=== PATIENT | male | born 1990 | race Caucasian/White ===

== ENCOUNTER 2018-12-26 20:23 | Emergency (ER) | payer SELFPAY ==
[~2018-12-26] VITALS: Ht 177.8 cm; Wt 72.6 kg
[2018-12-26] MEDS ORDERED: NS IV 1000 ML 1,000 ML IV ONE (20:48)
[2018-12-26 21:06] LABS: BASOPHILS % (AUTO) 0 % (0-10); EOSINOPHILS % (AUTO) 0 % (0-10); HEMATOCRIT 44 % (40-54); HEMOGLOBIN 14.8 G/DL (13.3-17.7); LYMPHOCYTES # (AUTO) 1.2 X 10^3 (1.0-4.0); LYMPHOCYTES % (AUTO) 10 % (12-44); MEAN CORPUSCULAR HEMOGLOBIN 29 PG (25-34); MEAN CORPUSCULAR HGB CONC 34 G/DL (32-36); MEAN CORPUSCULAR VOLUME 86 FL (80-99); MEAN PLATELET VOLUME 10.1 FL (7.4-10.4); MONOCYTES # (AUTO) 0.8 X 10^3 (0.0-1.0); MONOCYTES % (AUTO) 7 % (0-12); NEUTROPHILS % (AUTO) 83 % (42-75); PLATELET COUNT 342 10^3/uL (130-400); RED CELL DISTRIBUTION WIDTH 12.7 % (10.0-14.5)
[2018-12-26 21:11] LABS: INR 1.1 (0.8-1.4); PROTHROMBIN TIME PATIENT 14.1 SEC (12.2-14.7)
--- NOTE | 2018-12-26 21:13 | Diagnostic Imaging Report ---
Patient History: Fall, dizziness, lightheadedness, diaphoresis, vomiting, nausea, cough. Technique: Single frontal view of the chest Comparison: None FINDINGS: The lung volumes are normal. No focal consolidation is seen. No large pleural effusion or pneumothorax is seen. The cardiomediastinal silhouette is normal in size and contour. No acute osseous abnormality is seen. IMPRESSION: No acute pulmonary abnormality seen. Dictated by: Dictated on workstation # [id number]
[2018-12-26 21:20] LABS: ALANINE AMINOTRANSFERASE 16 U/L (0-55); ALBUMIN 4.6 GM/DL (3.2-4.5); ALKALINE PHOSPHATASE 59 U/L (40-136); BILIRUBIN,TOTAL 0.5 MG/DL (0.1-1.0); BUN/CREATININE RATIO 13; CALCIUM 9.9 MG/DL (8.5-10.1); CARBON DIOXIDE 22 MMOL/L (21-32); CHLORIDE 104 MMOL/L (98-107); CREATININE SERUM 1.02 MG/DL (0.60-1.30); GFR ESTIMATED > 60; GLUCOSE 119 MG/DL (70-105); POTASSIUM 3.4 MMOL/L (3.6-5.0); SODIUM 138 MMOL/L (135-145); TOTAL PROTEIN 8.1 GM/DL (6.4-8.2)
[2018-12-26] MEDS ORDERED: KETOROLAC 30 MG/ML VIAL IVP ONE (21:45)
[2018-12-26] MEDS ORDERED: ONDANSETRON 4 MG/2 ML (SDV) Z0FRAN IVP ONE (21:45)
[2018-12-26] MEDS ORDERED: ACETAMINOPHEN 500 MG TAB (TYLENOL) PO ONE (21:45)
--- NOTE | 2018-12-26 21:47 | ED General ---
General Chief Complaint: Dizziness/Syncope Stated Complaint: DIZZY,LIGHTHEADED Nursing Triage Note: PT STATES LAST TUESDAY HE FELL OFF HIS TRAILER AND HIT HIS HEAD. UNKNOWN IF HE HIT HIS HEAD. PT STATES TODAY HE HAS HAD 4 EPISODES OF VOMITING AND FEELS SWEATY. PT DENIES DIARRHEA. PT DENIES SYNCOPE EPISODE TODAY. Nursing Sepsis Screen: Possible Sepsis Risk Source of Information: Patient Exam Limitations: No Limitations History of Present Illness Date Seen by Provider: Dec 26, 2018 Time Seen by Provider: 20:48 Initial Comments This 28-year-old young man presents to the emergency room with complaints of vomiting, lightheadedness, dizziness, sweats, chills, slight dry cough, and lower extremity myalgias that started earlier today. He had a fall on of last week for which she was seen and evaluated at a facility in [place]. He had been feeling relatively well after that other than needing to take naproxen for pains related to the fall. He is noted to be febrile and tachycardic on arrival. Septic workup was pursued. Allergies and Home Medications Allergies Coded Allergies: No Known Drug Allergies (Unverified , 12/26/18) Patient Home Medication List Home Medication List Reviewed: Yes Review of Systems Review of Systems Constitutional: see HPI EENTM: no symptoms reported Respiratory: see HPI Cardiovascular: see HPI Gastrointestinal: see HPI Genitourinary: no symptoms reported Musculoskeletal: see HPI Skin: no symptoms reported Psychiatric/Neurological: See HPI Hematologic/Lymphatic: No Symptoms Reported Past Cqzejyn-[id number] Hx Past Med/Social Hx: Reviewed Nursing Past Med/Soc Hx Patient Social History Alcohol Use: Rarely Uses Recreational Drug Use: No Recent Foreign Travel: No Contact w/Someone Who Travel: No Recent Infectious Disease Expo: No Recent Hopitalizations: No Physical Abuse: No Sexual Abuse: No Mistreated: No Fear: No Seasonal Allergies Seasonal Allergies: No Past Medical History Surgeries: No Respiratory: No Cardiac: No Neurological: No Genitourinary: No Gastrointestinal: No Musculoskeletal: No Endocrine: No HEENT: No Cancer: No Psychosocial: No Integumentary: No Physical Exam Vital Signs Vital Signs - First Documented 12/26/18 12/26/18 20:40 20:58 Temp 101.6 Pulse 126 Resp 20 B/P (MAP) 109/79 (89) Pulse Ox 99 O2 Delivery Room Air Capillary Refill : Less Than 3 Seconds Height, Weight, BMI Height: 5'10.00" Weight: 160lbs. oz. 72.075137jq; BMI Method:Stated General Appearance: No Apparent Distress, WD/WN HEENT: PERRL/EOMI, TMs Normal, Normal ENT Inspection, Pharynx Normal Neck: Normal Inspection Respiratory: Lungs Clear, Normal Breath Sounds, No Accessory Muscle Use, No Respiratory Distress Cardiovascular: No Edema, No Murmur, Tachycardia Gastrointestinal: Normal Bowel Sounds, Non Tender, Soft Extremity: Normal Inspection, No Pedal Edema Neurologic/Psychiatric: Alert, Oriented x3, No Motor/Sensory Deficits, Normal Mood/Affect, workgroup leader II-XII Norm as Tested Skin: Normal Color, Warm/Dry Focused Exam Lactate Level 12/26/18 20:57: Lactic Acid Level 0.78 Lactic Acid Level Progress/Results/Core Measures Suspected Sepsis Recent Fever Within 48 Hours: Yes Infection Criteria Present: Suspected New Infection New/Unexplained Altered Menta: No Sepsis Screen: Possible Sepsis Risk SIRS Temperature:101.6 Pulse: 126 Respiratory Rate: 20 Laboratory Tests 12/26/18 20:57: White Blood Count 12.0H Blood Pressure 109 /79 Mean: 89 12/26/18 20:57: Lactic Acid Level 0.78 Laboratory Tests 12/26/18 20:57: Creatinine 1.02, INR Comment 1.1, Platelet Count 342, Total Bilirubin 0.5 Results/Orders Lab Results Laboratory Tests Test 12/26/18 20:57 12/26/18 22:26 Range/Units White Blood Count 12.0 H 4.3-11.0 10^3/uL Red Blood Count 5.09 4.35-5.85 10^6/uL Hemoglobin 14.8 13.3-17.7 G/DL Hematocrit 44 40-54 % Mean Corpuscular Volume 86 80-99 FL Mean Corpuscular Hemoglobin 29 25-34 PG Mean Corpuscular Hemoglobin Concent 34 32-36 G/DL Red Cell Distribution Width 12.7 10.0-14.5 % Platelet Count 342 130-400 10^3/uL Mean Platelet Volume 10.1 7.4-10.4 FL Neutrophils (%) (Auto) 83 H 42-75 % Lymphocytes (%) (Auto) 10 L 12-44 % Monocytes (%) (Auto) 7 0-12 % Eosinophils (%) (Auto) 0 0-10 % Basophils (%) (Auto) 0 0-10 % Neutrophils # (Auto) 10.0 H 1.8-7.8 X 10^3 Lymphocytes # (Auto) 1.2 1.0-4.0 X 10^3 Monocytes # (Auto) 0.8 0.0-1.0 X 10^3 Eosinophils # (Auto) 0.0 0.0-0.3 10^3/uL Basophils # (Auto) 0.0 0.0-0.1 10^3/uL Prothrombin Time 14.1 12.2-14.7 SEC INR Comment 1.1 0.8-1.4 Activated Partial Thromboplast Time 32 24-35 SEC Sodium Level 138 135-145 MMOL/L Potassium Level 3.4 L 3.6-5.0 MMOL/L Chloride Level 104 98-107 MMOL/L Carbon Dioxide Level 22 21-32 MMOL/L Anion Gap 12 5-14 MMOL/L Blood Urea Nitrogen 13 7-18 MG/DL Creatinine 1.02 0.60-1.30 MG/DL Estimat Glomerular Filtration Rate > 60 BUN/Creatinine Ratio 13 Glucose Level 119 H 70-105 MG/DL Lactic Acid Level 0.78 0.50-2.00 MMOL/L Calcium Level 9.9 8.5-10.1 MG/DL Corrected Calcium 8.5-10.1 MG/DL Total Bilirubin 0.5 0.1-1.0 MG/DL Aspartate Amino Transf (AST/SGOT) 14 5-34 U/L Alanine Aminotransferase (ALT/SGPT) 16 0-55 U/L Alkaline Phosphatase 59 40-136 U/L Total Creatine Kinase 132 30-200 U/L C-Reactive Protein High Sensitivity 2.90 H 0.00-0.50 MG/DL Total Protein 8.1 6.4-8.2 GM/DL Albumin 4.6 H 3.2-4.5 GM/DL Urine Color YELLOW Urine Clarity SLIGHTLY CLOUDY Urine pH 6.5 5-9 Urine Specific Byron 1.010 L 1.016-1.022 Urine Protein NEGATIVE NEGATIVE Urine Glucose (UA) NEGATIVE NEGATIVE Urine Ketones NEGATIVE NEGATIVE Urine Nitrite NEGATIVE NEGATIVE Urine Bilirubin NEGATIVE NEGATIVE Urine Urobilinogen 1 NORMAL MG/DL Urine Leukocyte Esterase 1+ H NEGATIVE Urine RBC (Auto) 1+ H NEGATIVE Urine RBC RARE /HPF Urine WBC RARE /HPF Urine Squamous Epithelial Cells RARE /HPF Urine Crystals NONE /LPF Urine Bacteria NEGATIVE /HPF Urine Casts NONE /LPF Urine Mucus SMALL H /LPF Urine Culture Indicated NO My Orders Orders - BENTLEY DERAS MD Cbc With Automated Diff (12/26/18 20:48) Comprehensive Metabolic Panel (12/26/18 20:48) Blood Culture (12/26/18 20:48) Urinalysis (12/26/18 20:48) Urine Culture (12/26/18 20:48) Protime With Inr (12/26/18 20:48) Partial Thromboplastin Time (12/26/18 20:48) Chest 1 View, Ap/Pa Only (12/26/18 20:48) Ed Iv/Invasive Line Start (12/26/18 20:48) Ed Iv/Invasive Line Start (12/26/18 20:48) Vital Signs Adult Sepsis Patie Q15M (12/26/18 20:48) O2 (12/26/18 20:48) Remove Rings In Anticipation O (12/26/18 20:48) Lactic Acid Analyzer (12/26/18 20:48) Ns Iv 1000 Ml (Sodium Chloride 0.9%) (12/26/18 20:48) Acetaminophen Tablet (Tylenol Tablet) (12/26/18 21:45) Ketorolac Injection (Toradol Injection) (12/26/18 21:45) Ondansetron Injection (Zofran Injectio (12/26/18 21:45) Creatine Kinase (12/26/18 21:33) Hs C Reactive Protein (12/26/18 21:33) Lactated Ringers (Lr 1000 Ml Iv Solution (12/26/18 22:09) Rx-Ondansetron Po (Rx-Zofran Po) (12/26/18 22:54) Medications Given in ED Vital Signs/I&O 12/27/18 00:00 Intake Total 2000 ml Balance 2000 ml Capillary Refill : Less Than 3 Seconds Blood Pressure Mean: 89 Progress Note #1: Time: 22:20 Progress Note Patient was seen and evaluated. Septic workup was pursued. Workup was relatively unremarkable thus far. We are still awaiting a UA. He is being treated for fever with Tylenol and pain with Toradol. A liter of normal saline was infused. He was still not able to urinate and a liter of LR has been ordered. Zofran was given for nausea. Progress Note #2: Progress Note Patient was feeling much improved after IV fluids and medications. Workup revealed no source of bacterial infection. Syndrome was felt to be caused by viral illness. See discharge instructions. Diagnostic Imaging Diagonstic Imaging: Xray Plain Films/CT/US/NM/MRI: chest Comments Chest x-ray viewed by me and report reviewed. See report below: NAME: JOSH LUQUE [facility] REC#: [id number] PT STATUS: REG ER : 1990 PHYSICIAN: BENTLEY DERAS MD ADMIT DATE: 12/26/18/ER Draft Date of Exam:12/26/18 CHEST 1 VIEW, AP/PA ONLY Patient History: Fall, dizziness, lightheadedness, diaphoresis, vomiting, nausea, cough. Technique: Single frontal view of the chest Comparison: None FINDINGS: The lung volumes are normal. No focal consolidation is seen. No large pleural effusion or pneumothorax is seen. The cardiomediastinal silhouette is normal in size and contour. No acute osseous abnormality is seen. IMPRESSION: No acute pulmonary abnormality seen. Dictated on workstation # [id number] Dict: 12/26/182106 Trans: 12/26/182111 [facility] [id number] Interpreted by: JOMAR HORN MD Departure Impression Primary Impression: Febrile illness Additional Impressions: Nausea & vomiting Qualified Codes: R11.2 - Nausea with vomiting, unspecified Lightheadedness Disposition: 01 HOME, SELF-CARE Condition: Improved Departure-Patient Inst. Decision time for Depature: 22:56 Referrals: NO,LOCAL PHYSICIAN (PCP/Family) Primary Care Physician Patient Instructions: Nausea and Vomiting, Adult (DC) Add. Discharge Instructions: Drink plenty of clear liquids. Start with a clear liquid diet and gradually advance your diet with small quantities of bland food as tolerated. Use Zofran (ondansetron) dissolved under your tongue every 4 hours as needed for nausea and vomiting. For aches and pains and fever you may take Tylenol (acetaminophen) up to 1000 mg every 6 hours as needed and/or ibuprofen up to 600 mg every 6 hours as needed. Return to care if you have worsening symptoms. All discharge instructions reviewed with patient and/or family. Voiced understanding. Work/School Note: Work Release Form Date Seen in the Emergency Department: Dec 26, 2018 Return to Work: Dec 28, 2018 Restrictions: No Restrictions BENTLEY DERAS MD Dec 26, 2018 21:47
[2018-12-26] MEDS ORDERED: LACTATED RINGERS 1,000 ML IV ONE (22:09)
[2018-12-26 22:34] LABS: BILIRUBIN,URINE NEGATIVE (NEGATIVE); CLARITY,URINE SLIGHTLY CLOUDY; GLUCOSE, URINE (UA) NEGATIVE (NEGATIVE); KETONES,URINE NEGATIVE (NEGATIVE); LEUKOCYTE ESTERASE ,URINE 1+ (NEGATIVE); NITRITE,URINE NEGATIVE (NEGATIVE); PH,URINE 6.5 (5-9); PROTEIN,URINE NEGATIVE (NEGATIVE); UROBILINOGEN,URINE 1 MG/DL (NORMAL)
[2018-12-26 22:47] LABS: BACTERIA,URINE NEGATIVE /HPF; COLOR,URINE YELLOW; RBC,URINE RARE /HPF; WBC,URINE RARE /HPF
[2018-12-26 22:48] LABS: SQUAMOUS EPITHELIAL CELL,UR RARE /HPF
[2018-12-26] MEDS ORDERED: RX-ONDANSETRON 4 MG ODT (ZOFRAN) PPK #4 SL STA (22:54)
[2018-12-26 23:12] VITALS: BP 110/78
== END 2018-12-26 23:13 | disposition home or self-care (01) ==
LOC: ER 20:26
DX: R42 Dizziness and giddiness (principal); R50.9 Fever, unspecified; R11.2 Nausea with vomiting, unspecified
CPT/HCPCS: 36415; 71045; 80053; 81000; 82550; 83605; 85025; 85610; 85730; 86141; 87040; 87088; 96361; 96374; 96375